=== PATIENT | male | born 1980 | race African-American/Black ===

== ENCOUNTER → 2019-07-19 | Emergency (ER) | payer SELFPAY ==
[~2019-07-19] MED LIST: AMOXicillin 250 MG CAP ONE; Amoxicillin/Potassium Clav 250 mg/5 ml Oral Suspension ONE; Bupivacaine 0.5% 10 ML VIAL ONE
== END ==
LOC: BURERS 19:57
DX: K02.9 Dental caries, unspecified (principal); F17.210 Nicotine dependence, cigarettes, uncomplicated; Z71.6 Tobacco abuse counseling
CPT/HCPCS: 64400; 99406; J3490

== ENCOUNTER 2020-01-16 13:03 | Emergency (ER) | payer SELFPAY ==
[2020-01-16] MEDS ORDERED: Morphine 4 MG/ML VIAL ONE (13:24)
[2020-01-16] MEDS ORDERED: Bacitracin 1 PK ONE (13:59)
[2020-01-16] MEDS ORDERED: Ketorolac Tromethamine 30 MG/ML VIAL ONE (13:59)
--- NOTE | 2020-01-16 17:22 | RAD ---
PORTABLE CHEST: Date: 01-16-2020 An AP portable film at 1351 shows a normal sized heart and mediastinum. There is no mediastinal widen ing or shift. The lungs are fully inflated and clear. There are no effusions. No fractures were appre ciated. IMPRESSION: No acute thoracic finding. POS: HOME
--- NOTE | 2020-01-16 17:59 | RAD ---
RIGHT ANKLE THREE VIEWS: Date: 01-16-2020 FINDINGS: No acute fracture was seen. The bones and joints appear intact. There is some irregularity along the inter osseous margin of the distal tibia and fibula. This suggests a probable prior high ankle sprain . Tiny rounded pieces of bone at the tip of each malleolus also speaks to old injuries. The articular surfaces are smooth. IMPRESSION: Evidence of old ankle trauma but no acute bony finding. POS: HOME
--- NOTE | 2020-01-16 18:01 | CT ---
CT OF THE CERVICAL SPINE: Date: 01-16-[address] of the cervical spine was done following trauma. FINDINGS: There is loss of the normal cervical lordosis which could be due to muscle spasm. No fracture, disloc ation, disc space narrowing of soft tissue swelling was seen. The C1-2 dens distance is normal. Ther e is no sign of significant central canal or foraminal stenosis. The lung apices were clear and show no pneumothorax. IMPRESSION: Straightening of the cervical spine, otherwise, exam unremarkable. Preliminary findings for each scan called to Dr. Xavier at 1347 on 01-16-2020. POS: HOME
--- NOTE | 2020-01-16 18:03 | CT ---
CT BRAIN WITHOUT CONTRAST: Date: 01-16-2020 FINDINGS: The ventricles are normal in size with no shift. No intracranial bleeding, mass or sign of stroke was found. There is good bowers white distention. A small area of slightly increased density at the periph rosario of the left posterior frontal lobe laterally on slice 20 is thought to be due to artifact from francesca ne. The skull appears intact. No fractures were seen. The visible paranasal sinuses are clear. There might be some focal mucosal thickening in the left maxillary sinus laterally. IMPRESSION: No acute intracranial finding. POS: HOME
== END 2020-01-16 14:14 | disposition home or self-care (01) ==
LOC: BURERS 13:03
DX: S93.401A Sprain of unspecified ligament of right ankle, initial encounter (principal); S00.83XA Contusion of other part of head, initial encounter; S40.211A Abrasion of right shoulder, initial encounter; M54.2 Cervicalgia; F17.210 Nicotine dependence, cigarettes, uncomplicated; Y04.0XXA Assault by unarmed brawl or fight, initial encounter
CPT/HCPCS: 70450; 71045; 72125; 96372; J1885; J2270

== ENCOUNTER 2020-01-30 13:04 | Emergency (ER) | payer SELFPAY ==
[2020-01-30] MEDS ORDERED: Ketorolac Tromethamine 60 MG/2 ML VIAL ONE (14:35)
--- NOTE | 2020-01-30 17:44 | RAD ---
RIGHT SHOULDER THREE VIEWS: Date: 01-30-2020 FINDINGS: No fracture, dislocation, or AC joint widening was seen. No periarticular calcifications are present. There is irregularity of the greater tubercle which is probably due to prior trauma in this location . IMPRESSION: Possible old trauma to the greater tubercle or the tendons attaching to it. No acute findings. POS: HOME
== END 2020-01-30 14:59 | disposition home or self-care (01) ==
LOC: BURERS 13:04
DX: M25.511 Pain in right shoulder (principal); Y09 Assault by unspecified means; F17.210 Nicotine dependence, cigarettes, uncomplicated
CPT/HCPCS: 96372; J1885

== ENCOUNTER 2020-09-07 14:35 | Emergency (ER) | payer SELFPAY ==
[2020-09-07] MEDS ORDERED: AMOXicillin 250 MG CAP ONE (14:56)
[2020-09-07] MEDS ORDERED: traMADol HCl 50 MG TAB ONE (14:56)
== END 2020-09-07 14:57 | disposition home or self-care (01) ==
LOC: BURERS 14:35
DX: K02.9 Dental caries, unspecified (principal); F17.210 Nicotine dependence, cigarettes, uncomplicated
CPT/HCPCS: 99282

== ENCOUNTER 2021-09-09 23:18 | Emergency (ER) | payer SELFPAY ==
[2021-09-10] MEDS ORDERED: Nitroglycerin 0.4 MG TAB 1 EACH ONE ×2 (00:08→00:19)
[2021-09-10] MEDS ORDERED: Fentanyl 100 MCG/2 ML VIAL ONE (00:31)
[2021-09-10 00:32] LABS: Hemoglobin 14.2 g/dL (14.0-18.0); Mean Corpuscular HGB CONC 33.9 g/dL (32.0-36.0); Mean Corpuscular Hemoglobin 31.8 pg (27.0-31.0); Mean Corpuscular Volume 93.9 fL (78.0-98.0); Mean Platelet Volume 7.1 fL (7.4-10.4); Platelet Count 238 thou/uL (130-400); RBC Distribution Width 12.5 % (11.5-14.5); Red Blood Cell (RBC) Count 4.47 mill/uL (4.70-6.10); White Blood Cell (WBC) Count 9.9 thou/uL (4.8-10.8)
[2021-09-10 00:38] LABS: ALT (SGPT) 36 U/L (8-55); AST (SGOT) 22 U/L (5-34); Albumin 3.7 g/dL (3.5-5.0); Alkaline Phosphatase 84 U/L (40-110); Anion Gap 14 mmol/L (10-20); BUN (Urea Nitrogen) 13 mg/dL (8.9-20.6); Bilirubin, Total Less than 0.2 mg/dL (0.2-1.2); Calc. Creatinine Clearance 0 mL/min (70-130); Calcium 8.6 mg/dL (7.8-10.44); Carbon Dioxide 24 mmol/L (22-29); Chloride 105 mmol/L (98-107); Estimated GFR 114; Globulin 2.7 g/dL (2.4-3.5); Glucose 108 mg/dL (70-105); Lipase 18 U/L (8-78); Potassium 3.9 mmol/L (3.5-5.1); Protein, Total 6.4 g/dL (6.0-8.3); Sodium 139 mmol/L (136-145)
[2021-09-10 00:56] LABS: Band 1 % (5-11); Lymphocytes 28 % (21-51); MDiff Complete? YES; Monocytes 7 % (0-10); Neutrophil 64 % (42-75)
[2021-09-10] MEDS ORDERED: Enoxaparin Sodium 100 MG/ML SYRINGE ONE (02:21)
== END 2021-09-10 02:15 | disposition short-term general hospital (02) ==
LOC: BURERS 23:18
DX: I26.94 Multiple subsegmental thrombotic pulmonary emboli without acute cor pulmonale (principal); F17.210 Nicotine dependence, cigarettes, uncomplicated
CPT/HCPCS: 71045; 71275; 80053; 83690; 84484; 85025; 85379; 93005; 96361; 96372; 96374; J1650; J3010